=== PATIENT | female | born 2000 | race Caucasian/White ===

== ENCOUNTER 2022-08-10 22:07 | Emergency (ER) | payer SELFPAY ==
[~2022-08-10] VITALS: Ht 157.5 cm; Wt 50.0 kg
[2022-08-10 22:13] VITALS: BP 133/85
== END 2022-08-10 23:15 | disposition home or self-care (01) ==
LOC: ER 22:07
DX: R51.9 Headache, unspecified (principal); Z53.21 Procedure and treatment not carried out due to patient leaving prior to being seen by health care provider
CPT/HCPCS: 99281